=== PATIENT | male | born 1960 | race Caucasian/White ===

== ENCOUNTER 2020-12-03 06:01 | Day surgery (SDC) | payer BC ==
[2020-11-26 13:03] VITALS: BMI 29.9
[2020-12-03] MEDS ORDERED: TRANEXAMIC ACID 1000 MG/10 ML VIAL IVPUSH ONE (06:21)
[2020-12-03] MEDS ORDERED: CEFAZOLIN 2 GM/D5W 2 GM/50 ML ML IVPB ONE (06:21)
[2020-12-03] MEDS: CELECOXIB 200 MG CAPSULE PO ONE ×2 (06:45→12:56)
[2020-12-03] MEDS ORDERED: MIDAZOLAM HCL 2 MG/2 ML SINGLE DOSE VIAL ONE ×3 (06:57→08:26)
[2020-12-03] MEDS ORDERED: BUPIVACAINE LIPOSOME/PF (EXPAREL) 266 MG/20 ML VIAL ONE (06:57)
[2020-12-03] MEDS ORDERED: SODIUM CHLORIDE 0.9% P/F 10 ML VIAL IJ ONE (06:57)
[2020-12-03] MEDS ORDERED: BUPIVACAINE HCL/PF 0.5% (5MG/ML) 10 ML VIAL ONE (06:57)
[2020-12-03] MEDS ORDERED: EPINEPHrine/PF 1 MG/1 ML (1:1,000) AMPULE ONE (07:06)
[2020-12-03] MEDS ORDERED: PROPOFOL 20 ML ONE ×3 (07:06→09:50)
[2020-12-03] MEDS ORDERED: methylPREDNISolone ACET (DEPO) 40 MG/1 ML VIAL ONE (07:06)
[2020-12-03] MEDS ORDERED: KETOROLAC TROMETHAMINE 60 MG/2 ML VIAL ONE (07:06)
[2020-12-03] MEDS ORDERED: ONDANSETRON 4 MG/2 ML VIAL ONE (08:11)
[2020-12-03] MEDS ORDERED: DEXAMETHASONE SOD PHOSPHATE 4 MG/1 ML VIAL ONE (08:11)
[2020-12-03] MEDS ORDERED: TRANEXAMIC ACID 1000 MG/10 ML VIAL ONE (08:15)
[2020-12-03 10:54] VITALS: O2SAT 97
[2020-12-03] MEDS ORDERED: ONDANSETRON 4 MG/2 ML VIAL IVPUSH PRN (10:58)
[2020-12-03] MEDS ORDERED: MAG HYDROX/AL HYDROX/SIMETH 30 ML UNIT-DOSE CUP PO PRN (10:58)
[2020-12-03] MEDS ORDERED: MAGNESIUM HYDROX 2400MG/30ML ORAL SUSPENSION 30 ML CUP PO PRN (10:58)
[2020-12-03] MEDS ORDERED: LACTATED RINGERS SOLUTION 1,000 ML IV SCH ×2 (11:00→11:30)
[2020-12-03] MEDS ORDERED: oxyCODONE HCL 5 MG TABLET PO PRN (11:10)
[2020-12-03] MEDS: ACETAMINOPHEN 1000 MG/100 ML VIAL (NON FORMULARY) IVPB ONE ×2 (11:30→15:34)
[2020-12-03] MEDS ORDERED: ACETAMINOPHEN 500 MG TABLET (FP) PO SCH (12:00)
[2020-12-03] MEDS: oxyCODONE HCL 5 MG TABLET PO PRN ×3 (14:03→21:16)
[2020-12-03] MEDS ORDERED: ACETAMINOPHEN 1000 MG/100 ML VIAL (NON FORMULARY) IVPB SCH (16:00)
[2020-12-03] MEDS: ACETAMINOPHEN 1000 MG/100 ML VIAL (NON FORMULARY) IVPB SCH ×2 (17:05→22:00)
[2020-12-03] MEDS: CEFAZOLIN 2 GM/D5W 2 GM/50 ML ML IVPB SCH ×2 (17:06→23:27)
[2020-12-03] MEDS: SENNOSIDES/DOCUSATE COMBO (SENNA PLUS) TABLET (UD) PO SCH (21:17)
[2020-12-03] MEDS: ASPIRIN COATED 81 MG TABLET.EC PO SCH (21:17)
[2020-12-03] MEDS: FAMOTIDINE 10 MG TABLET PO SCH (21:17)
[2020-12-03] MEDS ORDERED: traZODone HCL 50 MG TABLET (FP) PO SCH (22:00)
[2020-12-03] MEDS ORDERED: CELECOXIB 100 MG CAPSULE PO SCH (22:00)
[2020-12-03] MEDS ORDERED: FAMOTIDINE 20 MG TABLET PO SCH (22:00)
[2020-12-03] MEDS ORDERED: CELECOXIB 200 MG CAPSULE PO ONE (23:25)
[2020-12-04] MEDS: oxyCODONE HCL 5 MG TABLET PO PRN ×3 (01:34→09:37)
[2020-12-04] MEDS ORDERED: HYDROmorphone HCl 2 MG/ML VIAL ONE (04:10)
[2020-12-04] MEDS ORDERED: HYDROmorphone HCl 2 MG/ML VIAL IVPB PRN (04:25)
[2020-12-04] MEDS ORDERED: CELECOXIB 100 MG CAPSULE PO SCH (08:00)
[2020-12-04 08:05] LABS: HEMATOCRIT 39.2 % (35.4-49); HEMOGLOBIN 12.8 GM/dl (11.7-16.9); MCH 29.8 pg (25.7-33.7); MCHC 32.7 g/dl (32.0-35.9); MEAN CELL VOLUME 91.2 fl (80-96); MEAN PLT VOLUME 8.7 fl (7.5-11.1); PLATELET COUNT 176 10^3/uL (134-434); RDW 12.1 % (11.9-15.9); WHITE BLOOD COUNT 8.7 K/mm3 (4.0-10.8)
[2020-12-04 08:12] LABS: CALCIUM 8.2 mg/dl (8.5-10); CREATININE 0.7 mg/dl (0.55-1.3)
[2020-12-04] MEDS: ACETAMINOPHEN 1000 MG/100 ML VIAL (NON FORMULARY) IVPB SCH (08:21)
[2020-12-04] MEDS: ASPIRIN COATED 81 MG TABLET.EC PO SCH (09:35)
[2020-12-04] MEDS: FAMOTIDINE 10 MG TABLET PO SCH (09:36)
[2020-12-04] MEDS: SENNOSIDES/DOCUSATE COMBO (SENNA PLUS) TABLET (UD) PO SCH (09:37)
[2020-12-04] MEDS ORDERED: amLODIPine BESYLATE 5 MG TABLET (FP) PO SCH (10:00)
[2020-12-04] MEDS ORDERED: MULTIVITAMINS (DAILY MVI) TABLET (FP) PO SCH (10:00)
[2020-12-04] MEDS ORDERED: PANTOPRAZOLE 20 MG TABLET PO SCH (10:00)
[2020-12-04 10:02] VITALS: BP 133/62; PULSE 85; TEMP 98.8
[2020-12-04] MEDS ORDERED: ROSUVASTATIN CA 5 MG TABLET (FP) PO SCH (22:00)
== END 2020-12-04 12:00 | disposition home or self-care (01) ==
LOC: FASUSAT 06:01 → JERBED 06:21 → UNDOADMIN 06:21 → FM/S 12:43 → FASUSAT 12-04 12:00
PROVIDERS: ATTEND Orthopaedic Surgery
PROC: 0SRD06A Replacement of Left Knee Joint with Oxidized Zirconium on Polyethylene Synthetic Substitute, Uncemented, Open Approach (ICD-10-PCS; principal; 2020-12-03 08:36)
DX: M17.12 Unilateral primary osteoarthritis, left knee (principal)
CPT/HCPCS: 27447; C1713; 36415; 73560-TC-LT-FY; 80048; 85027; 94760; 97010-GP; 97116-GP; 97161-GP; J0131

== ENCOUNTER 2022-03-31 09:04 | Inpatient (IN) | payer BC ==
[2022-03-29 11:03] VITALS: BMI 31.8
[2022-03-31] MEDS ORDERED: CEFAZOLIN 2 GM in DEXTROSE 5%-WATER - 100 ML IVPB ONE (09:17)
[2022-03-31] MEDS ORDERED: TRANEXAMIC ACID 1000 MG/10 ML VIAL IVPUSH ONE (09:17)
[2022-03-31] MEDS ORDERED: ONDANSETRON 4 MG/2 ML VIAL IVPUSH PRN ×2 (10:31→13:39)
[2022-03-31] MEDS ORDERED: MAG HYDROX/AL HYDROX/SIMETH 30 ML UNIT-DOSE CUP PO PRN (10:31)
[2022-03-31] MEDS ORDERED: MAGNESIUM HYDROX 2400MG/30ML ORAL SUSPENSION 30 ML CUP PO PRN (10:31)
[2022-03-31] MEDS ORDERED: oxyCODONE HCL 5 MG TABLET PO PRN (10:37)
[2022-03-31] MEDS ORDERED: morphine SULFATE 4 MG/ML VIAL IVPUSH PRN (10:37)
[2022-03-31] MEDS ORDERED: LACTATED RINGERS SOLUTION 1,000 ML IV SCH (10:45)
[2022-03-31] MEDS ORDERED: SODIUM CHLORIDE 0.9% P/F 10 ML VIAL IJ ONE (10:47)
[2022-03-31] MEDS ORDERED: BUPIVACAINE LIPOSOME/PF (EXPAREL) 266 MG/20 ML VIAL ONE (10:47)
[2022-03-31] MEDS ORDERED: BUPIVACAINE HCL 100 ML ONE (10:47)
[2022-03-31] MEDS ORDERED: MIDAZOLAM HCL 2 MG/2 ML SINGLE DOSE VIAL ONE (10:47)
[2022-03-31] MEDS ORDERED: ONDANSETRON 4 MG/2 ML VIAL ONE (11:12)
[2022-03-31] MEDS ORDERED: ceFAZolin SODIUM 1 GM VIAL ONE (11:12)
[2022-03-31] MEDS ORDERED: TRANEXAMIC ACID 1000 MG/10 ML VIAL ONE (11:15)
[2022-03-31] MEDS ORDERED: PROPOFOL 20 ML ONE ×2 (12:25→12:49)
[2022-03-31] MEDS ORDERED: oxyCODONE HCL 5 MG TABLET ONE (14:09)
[2022-03-31] MEDS ORDERED: ACETAMINOPHEN 500 MG TABLET (FP) ONE (14:09)
[2022-03-31] MEDS: ACETAMINOPHEN 500 MG TABLET (FP) PO SCH ×2 (14:12→20:04)
[2022-03-31] MEDS: oxyCODONE HCL 5 MG TABLET PO PRN ×2 (17:13→20:03)
[2022-03-31] MEDS: CEFAZOLIN SODIUM 2 GM in DEXTROSE 5%-WATER 100 ML IVPB SCH (20:06)
[2022-03-31] MEDS: ASPIRIN 81 MG CHEWABLE TABLETS PO SCH (21:13)
[2022-03-31] MEDS: SENNOSIDES/DOCUSATE COMBO (SENNA PLUS) TABLET (UD) PO SCH (21:13)
[2022-03-31] MEDS ORDERED: traZODone HCL 100 MG TABLET (FP) PO SCH (22:00)
[2022-03-31] MEDS ORDERED: FAMOTIDINE 20 MG TABLET PO PRN (22:00)
[2022-03-31 22:56] VITALS: RESP 17
[2022-03-31] MEDS: KETOROLAC TROMETHAMINE 30 MG/1 ML VIAL IVPUSH SCH (22:57)
[2022-04-01] MEDS: oxyCODONE HCL 5 MG TABLET PO PRN ×2 (01:09→08:01)
[2022-04-01] MEDS: ACETAMINOPHEN 500 MG TABLET (FP) PO SCH ×2 (01:12→07:41)
[2022-04-01] MEDS: CEFAZOLIN SODIUM 2 GM in DEXTROSE 5%-WATER 100 ML IVPB SCH (03:18)
[2022-04-01] MEDS: KETOROLAC TROMETHAMINE 30 MG/1 ML VIAL IVPUSH SCH (06:26)
[2022-04-01] MEDS ORDERED: SIMETHICONE 80 MG TAB.CHEW (FP) PO PRN (07:51)
[2022-04-01 08:56] LABS: HEMOGLOBIN 16.1 G/dL (11.7-16.9); MCHC 35.7 g/dl (32.0-35.9); MEAN CELL VOLUME 89.5 fl (80-96); MEAN PLT VOLUME 7.9 fl (7.5-11.1); PLATELET COUNT 164.9 10^3/uL (134-434); RBC 5.03 10^6/uL (4.00-5.60); RDW 12.9 % (11.9-15.9); WHITE BLOOD COUNT 9.3 10^3/uL (4.0-10.8)
[2022-04-01 09:10] LABS: CALCIUM 8.6 mg/dl (8.5-10); CREATININE 0.8 mg/dl (0.55-1.3)
[2022-04-01] MEDS: SENNOSIDES/DOCUSATE COMBO (SENNA PLUS) TABLET (UD) PO SCH (09:40)
[2022-04-01] MEDS: ASPIRIN 81 MG CHEWABLE TABLETS PO SCH (09:40)
[2022-04-01] MEDS ORDERED: POLYETHYLENE GLYCOL (HEALTHYLAX) 3350 17 GM PACKET PO SCH (10:00)
[2022-04-01] MEDS ORDERED: PANTOPRAZOLE 20 MG TABLET PO SCH (10:00)
[2022-04-01] MEDS ORDERED: RAMIPRIL 5 MG CAPSULE PO SCH (10:00)
[2022-04-01] MEDS ORDERED: MULTIVITAMINS (DAILY MVI) TABLET (FP) PO SCH (10:00)
[2022-04-01 11:07] VITALS: BP 129/64; PULSE 84; TEMP 97.8
[2022-04-01] MEDS ORDERED: KETOROLAC TROMETHAMINE 30 MG/1 ML VIAL IVPUSH ONE (12:35)
[2022-04-01] MEDS ORDERED: ROSUVASTATIN CA 5 MG TABLET PO SCH (22:00)
== END 2022-04-01 13:56 | disposition home or self-care (01) | DRG 470 ==
LOC: FASUSAT 09:04 → EDSTATUS 09:30 → FM/S 10:32 → FASUSAT 14:31
PROVIDERS: ADMIT Orthopaedic Surgery; ATTEND Orthopaedic Surgery
PROC: 0SRC0JA Replacement of Right Knee Joint with Synthetic Substitute, Uncemented, Open Approach (ICD-10-PCS; principal; 2022-03-31 11:29)
DX: M17.11 Unilateral primary osteoarthritis, right knee (principal)
CPT/HCPCS: 36415; 73560-TC-RT-FY; 80048; 85027; 88305-TC; 88311-TC; 94760; 97010-GP; 97116-GP; 97161-GP; C1776; C1889